=== PATIENT | female | born 1990 | race African-American/Black ===

== ENCOUNTER 2023-02-03 03:39 | Emergency (ER) | payer OTHER ==
[~2023-02-03] VITALS: Ht 167.6 cm; Wt 81.8 kg
[2023-02-03 03:59] VITALS: BP 136/86; PULSE 88; RESP 17; O2SAT 99
[2023-02-03 04:34] LABS: Basophils # (auto) 0 10 ^3/uL (0-0.2); Basophils % (auto) 0.6 % (0.0-2.0); Eosinophils # (auto) 0.2 10 ^3/uL (0-0.8); Eosinophils % (auto) 4.3 % (0.0-7.0); Hematocrit 36.8 % (36.0-46.0); Hemoglobin 12.1 g/dL (12.2-16.2); Lymphocytes % (auto) 34.4 % (10.0-50.0); Mean Corpuscular Hemoglobin 31.3 pg (28.0-32.0); Mean Corpuscular Volume 94.8 fL (80.0-100.0); Monocytes # (auto) 0.4 10 ^3/uL (0-1.3); Monocytes % (auto) 7.8 % (0.0-12.0); Neutrophils % (auto) 52.9 % (37.0-80.0); Nucleated Red Blood Cells % 0.1 %; Red Blood Cells 3.88 10^6/uL (4.0-5.20); Red Cell Distribution Width 12.4 % (11.8-14.3); White Blood Cell 5.7 10^3/uL (4.4-10.8)
[2023-02-03 04:43] LABS: Alanine Aminotransferase 13 U/L (7-40); Albumin 4.2 g/dL (3.2-4.8); Alkaline Phosphatase 42 U/L (46-116); Anion Gap 6 (5-15); Aspartate Aminotransferase 10 U/L (13-40); BUN/Creatinine Ratio 9.1 (10.0-20.0); Bilirubin, Total 0.5 mg/dL (0.2-1.0); Blood Urea Nitrogen 8 mg/dL (9-23); Carbon Dioxide 25 mmol/L (20-30); Chloride 104 mmol/L (98-107); Glucose 168 mg/dL (74-106); Potassium 3.8 mmol/L (3.5-5.1); Sodium 135 mmol/L (136-145); Total Protein 7.1 g/dL (5.7-8.2)
== END 2023-02-03 06:12 | disposition left against medical advice (07) ==
LOC: EDBD 03:39 → ER 03:39
DX: O00.80 Other ectopic pregnancy without intrauterine pregnancy (principal); O99.611 Diseases of the digestive system complicating pregnancy, first trimester; R10.30 Lower abdominal pain, unspecified; K92.89 Other specified diseases of the digestive system; Z88.0 Allergy status to penicillin; Z3A.01 Less than 8 weeks gestation of pregnancy
CPT/HCPCS: 36415; 80053; 83690; 84702; 85025

== ENCOUNTER 2023-03-01 19:39 | Inpatient (IN) | payer OTHER ==
[~2023-03-01] VITALS: Ht 152.4 cm; Wt 73.0 kg
[~2023-03-01 19:39] MED LIST: DOCU-94 PO; HYDR-4902 PO; IBUP-1456 PO
[2023-03-01 21:40] LABS: Hemoglobin 10.3 g/dL (12.2-16.2); Mean Corpuscular Hemoglobin 30.2 pg (28.0-32.0); Mean Corpuscular Hgb Conc. 33.3 g/dL (32.0-36.0); Mean Corpuscular Volume 90.7 fL (80.0-100.0); Red Blood Cells 3.41 10^6/uL (4.0-5.20)
[2023-03-01 21:41] LABS: Basophils % (manual) 0 (0.0-2.0); Blast Cells 0; Eosinophils % (manual) 0 (0-7); Myelocytes % 0; Promyelocytes % 0; Reactive Lymphocytes 0
[2023-03-01 22:04] LABS: Alanine Aminotransferase 12 U/L (7-40); Albumin 4.5 g/dL (3.2-4.8); Alkaline Phosphatase 67 U/L (46-116); Anion Gap 8 (5-15); Aspartate Aminotransferase 21 U/L (13-40); BUN/Creatinine Ratio 9.5 (10.0-20.0); Blood Urea Nitrogen 7 mg/dL (9-23); Calcium 9.5 mg/dL (8.7-10.4); Carbon Dioxide 27 mmol/L (20-30); Chloride 99 mmol/L (98-107); Glucose 103 mg/dL (74-106); Potassium 3.7 mmol/L (3.5-5.1); Sodium 134 mmol/L (136-145)
[2023-03-01 22:05] LABS: Bilirubin, Total 0.6 mg/dL (0.2-1.0); Total Protein 8.1 g/dL (5.7-8.2)
[2023-03-01 22:16] LABS: Anisocytosis Slight; Band Neutrophils % (manual) 4; Large Platelets FEW; Lymphocytes % (manual) 8 (10.0-50.0); Metamyelocytes % 1; Monocytes % (manual) 8 (0-12); Platelet Estimate Adequate
[2023-03-01] MEDS ORDERED: HYDROcodone-ACET 10/325MG TAB PO ONE (22:30)
[2023-03-01] MEDS ORDERED: SODIUM CHLORIDE 0.9% 1,000 ML IV ONE (23:30)
[2023-03-01 23:39] LABS: Erythrocyte Sedimentation Rate 91 mm/hr (0-20)
[2023-03-02 02:00] LABS: Urine Bacteria NONE SEEN /hpf (None Seen); Urine Blood Negative /uL (Negative); Urine Clarity Clear (Clear); Urine Color Yellow (Yellow); Urine Mucus FEW (None Seen); Urine Protein, UAD TRACE (Negative); Urine Specific Gravity 1.012 (1.001-1.035); Urine WBC 2 /hpf (0 - 5)
[2023-03-02] MEDS ORDERED: ONDANSETRON HCL 4 MG/2 ML VIAL IV ONE (02:00)
[2023-03-02] MEDS ORDERED: MORPHINE SULFATE 4 MG/ML SYR/VIAL IV ONE (02:00)
[2023-03-02] MEDS ORDERED: MORPHINE SULFATE INJ 2 MG/ml SYRG IV PRN (06:00)
[2023-03-02] MEDS: LACTATED RINGER'S 1,000 ML IV SCH ×2 (06:10→16:18)
[2023-03-02] MEDS: metroNIDAZOLE 500MG/100ML 100 ML IV SCH ×3 (06:10→22:04)
[2023-03-02] MEDS ORDERED: ACETAMINOPHEN 500 MG TAB PO ONE (06:15)
[2023-03-02 06:37] LABS: Basophils # (auto) 0 10 ^3/uL (0-0.2); Basophils % (auto) 0.2 % (0.0-2.0); Eosinophils # (auto) 0.1 10 ^3/uL (0-0.8); Eosinophils % (auto) 0.4 % (0.0-7.0); Hematocrit 28.8 % (36.0-46.0); Hemoglobin 9.6 g/dL (12.2-16.2); Lymphocytes # (auto) 1.2 10 ^3/uL (0.4-5.4); Lymphocytes % (auto) 7.9 % (10.0-50.0); Mean Corpuscular Hgb Conc. 33.3 g/dL (32.0-36.0); Mean Corpuscular Volume 90.1 fL (80.0-100.0); Monocytes # (auto) 1.6 10 ^3/uL (0-1.3); Monocytes % (auto) 10.2 % (0.0-12.0); Neutrophils # (auto) 12.9 10 ^3/uL (1.6-8.6); Neutrophils % (auto) 81.3 % (37.0-80.0); Red Cell Distribution Width 13.2 % (11.8-14.3); White Blood Cell 15.8 10^3/uL (4.4-10.8)
[2023-03-02 06:53] LABS: Chloride 101 mmol/L (98-107); Potassium 3.4 mmol/L (3.5-5.1); Sodium 135 mmol/L (136-145)
[2023-03-02 06:54] LABS: Anion Gap 8 (5-15); Carbon Dioxide 26 mmol/L (20-30)
[2023-03-02 06:55] LABS: Calcium 8.8 mg/dL (8.7-10.4)
[2023-03-02 06:59] LABS: BUN/Creatinine Ratio 9.1 (10.0-20.0); Blood Urea Nitrogen 6 mg/dL (9-23); Glucose 120 mg/dL (74-106)
[2023-03-02] MEDS: ONDANSETRON HCL 4 MG/2 ML VIAL IV PRN ×2 (09:05→19:32)
[2023-03-02] MEDS: PIPERACILLIN-TAZOB 3.375GM 100 ML IV SCH ×4 (09:06→23:13)
[2023-03-02] MEDS: DOCUSATE SOD 100 MG CAP PO SCH ×2 (10:00→22:03)
[2023-03-02 13:20] LABS: Urine Bacteria NONE SEEN /hpf (None Seen); Urine Blood Negative /uL (Negative); Urine Clarity Clear (Clear); Urine Color Colorless (Yellow); Urine Protein, UAD Negative (Negative); Urine Specific Gravity 1.013 (1.001-1.035); Urine WBC 2 /hpf (0 - 5)
[2023-03-02] MEDS ORDERED: IOHEXOL 300 MG/ML 100ML BOTTLE IJ ONE (14:19)
[2023-03-02] MEDS ORDERED: OMNIPAQUE 12mg/ml 500ml ORAL SOLUTION PO ONE (14:20)
[2023-03-02] MEDS: HYDROcodone-ACET 10/325MG TAB PO PRN ×2 (15:44→22:03)
[2023-03-02 17:00] VITALS: BP 127/85; PULSE 101; RESP 17; TEMP 99.6; O2SAT 97
[2023-03-02] MEDS ORDERED: IOHEXOL 350 MG/ML 100ML IJ ONE (20:25)
[2023-03-02 22:00] VITALS: BP 126/78; PULSE 91; RESP 16; TEMP 98.7; O2SAT 100
[2023-03-03] VITALS (9 sets, daily range): BP systolic 105–124; BP diastolic 68–80; PULSE 75–100; RESP 13–18; TEMP 97.9–101.9; O2SAT 96–99
[2023-03-03] MEDS: LACTATED RINGER'S 1,000 ML IV SCH ×3 (00:31→18:07)
[2023-03-03] MEDS: PIPERACILLIN-TAZOB 3.375GM 100 ML IV SCH ×4 (04:56→23:29)
[2023-03-03 05:49] LABS: Basophils # (auto) 0 10 ^3/uL (0-0.2); Basophils % (auto) 0.2 % (0.0-2.0); Eosinophils # (auto) 0.1 10 ^3/uL (0-0.8); Eosinophils % (auto) 0.3 % (0.0-7.0); Hematocrit 28.3 % (36.0-46.0); Hemoglobin 9.7 g/dL (12.2-16.2); Lymphocytes # (auto) 0.9 10 ^3/uL (0.4-5.4); Lymphocytes % (auto) 4.1 % (10.0-50.0); Mean Corpuscular Hemoglobin 30.4 pg (28.0-32.0); Mean Corpuscular Hgb Conc. 34.3 g/dL (32.0-36.0); Mean Corpuscular Volume 88.8 fL (80.0-100.0); Monocytes # (auto) 1.4 10 ^3/uL (0-1.3); Monocytes % (auto) 6.6 % (0.0-12.0); Neutrophils # (auto) 18.4 10 ^3/uL (1.6-8.6); Neutrophils % (auto) 88.8 % (37.0-80.0); Red Blood Cells 3.19 10^6/uL (4.0-5.20); Red Cell Distribution Width 13.3 % (11.8-14.3); White Blood Cell 20.7 10^3/uL (4.4-10.8)
[2023-03-03] MEDS: ONDANSETRON HCL 4 MG/2 ML VIAL IV PRN (05:56)
[2023-03-03] MEDS: HYDROcodone-ACET 10/325MG TAB PO PRN (05:56)
[2023-03-03] MEDS: metroNIDAZOLE 500MG/100ML 100 ML IV SCH ×3 (05:56→21:29)
[2023-03-03] MEDS ORDERED: VANCOMYCIN PER PHARMACY 0 MG IV SCH (07:15)
[2023-03-03] MEDS ORDERED: VANCOMYCIN 1GM/250ML 250 ML IV ONE (07:30)
[2023-03-03 08:10] LABS: INR 1.26 (0.9-1.15)
[2023-03-03] MEDS ORDERED: SUCCINYLCHOLINE CHLORIDE 20 MG/ML 10ML VIAL IV ONE (08:53)
[2023-03-03] MEDS ORDERED: fentaNYL CITRATE 100 MCG/2 ML VL ONE (08:57)
[2023-03-03] MEDS ORDERED: ROCURONIUM 10MG/ML 10ML VIAL IV ONE (09:14)
[2023-03-03] MEDS ORDERED: ONDANSETRON HCL 4 MG/2 ML VIAL ONE (09:15)
[2023-03-03] MEDS ORDERED: DexAMETHasone SOD PHOS 10MG/1ML VIAL INJ ONE (09:15)
[2023-03-03] MEDS ORDERED: MEPERIDINE HCL (50 MG/ML) 1 ML VIAL ONE (09:18)
[2023-03-03] MEDS ORDERED: SUGAMMADEX 200mg/2ml Vial (100MG/ML) IV ONE (09:28)
[2023-03-03] MEDS: DOCUSATE SOD 100 MG CAP PO SCH ×2 (13:38→21:28)
[2023-03-03] MEDS: VANCOMYCIN 1GM/250ML 250 ML IV SCH (18:00)
[2023-03-03] MEDS: HYDROmorphone HCL 2 MG/ML VL/or syr IV PRN (21:45)
[2023-03-04] VITALS (7 sets, daily range): BP systolic 102–120; BP diastolic 65–83; PULSE 74–92; RESP 16–19; TEMP 97.7–98.6; O2SAT 96–98
[2023-03-04] MEDS: LACTATED RINGER'S 1,000 ML IV SCH ×3 (01:18→18:38)
[2023-03-04] MEDS: ONDANSETRON HCL 4 MG/2 ML VIAL IV PRN ×2 (01:57→11:53)
[2023-03-04] MEDS: VANCOMYCIN 1GM/250ML 250 ML IV SCH (03:45)
[2023-03-04] MEDS: MORPHINE SULFATE INJ 2 MG/ml SYRG IV PRN (04:59)
[2023-03-04] MEDS: metroNIDAZOLE 500MG/100ML 100 ML IV SCH (05:04)
[2023-03-04] MEDS: PIPERACILLIN-TAZOB 3.375GM 100 ML IV SCH ×4 (06:11→23:06)
[2023-03-04 06:53] LABS: Basophils # (auto) 0 10 ^3/uL (0-0.2); Basophils % (auto) 0.1 % (0.0-2.0); Eosinophils # (auto) 0 10 ^3/uL (0-0.8); Eosinophils % (auto) 0.2 % (0.0-7.0); Hematocrit 27.2 % (36.0-46.0); Hemoglobin 9.1 g/dL (12.2-16.2); Lymphocytes % (auto) 9.2 % (10.0-50.0); Mean Corpuscular Hgb Conc. 33.3 g/dL (32.0-36.0); Monocytes # (auto) 1.5 10 ^3/uL (0-1.3); Monocytes % (auto) 6.7 % (0.0-12.0); Neutrophils # (auto) 18.2 10 ^3/uL (1.6-8.6); Neutrophils % (auto) 83.8 % (37.0-80.0); Red Blood Cells 3.02 10^6/uL (4.0-5.20); Red Cell Distribution Width 13.6 % (11.8-14.3); White Blood Cell 21.7 10^3/uL (4.4-10.8)
[2023-03-04] MEDS: DOCUSATE SOD 100 MG CAP PO SCH ×2 (10:00→21:28)
[2023-03-04] MEDS: HYDROmorphone HCL 2 MG/ML VL/or syr IV PRN (11:53)
[2023-03-05] VITALS (7 sets, daily range): BP systolic 102–113; BP diastolic 61–72; PULSE 74–78; RESP 18; TEMP 97.5–98.5; O2SAT 98–99
[2023-03-05] MEDS: LACTATED RINGER'S 1,000 ML IV SCH ×3 (01:57→19:00)
[2023-03-05] MEDS: PIPERACILLIN-TAZOB 3.375GM 100 ML IV SCH ×3 (05:41→18:00)
[2023-03-05 08:33] LABS: Hematocrit 28.5 % (36.0-46.0); Hemoglobin 9.5 g/dL (12.2-16.2); Mean Corpuscular Hemoglobin 30.1 pg (28.0-32.0); Mean Corpuscular Hgb Conc. 33.3 g/dL (32.0-36.0); Mean Corpuscular Volume 90.5 fL (80.0-100.0); Red Blood Cells 3.15 10^6/uL (4.0-5.20); Red Cell Distribution Width 13.6 % (11.8-14.3); White Blood Cell 13.8 10^3/uL (4.4-10.8)
[2023-03-05 08:53] LABS: Basophils % (manual) 0 (0.0-2.0); Blast Cells 0; Reactive Lymphocytes 0
[2023-03-05 12:04] LABS: Band Neutrophils % (manual) 4; Eosinophils % (manual) 2 (0-7); Lymphocytes % (manual) 7 (10.0-50.0); Metamyelocytes % 1; Monocytes % (manual) 7 (0-12); Myelocytes % 1; Platelet Estimate Adequate; Promyelocytes % 1
[2023-03-05] MEDS: HYDROmorphone HCL 2 MG/ML VL/or syr IV PRN (13:14)
[2023-03-05] MEDS: DOCUSATE SOD 100 MG CAP PO SCH ×2 (13:21→22:00)
[2023-03-06] VITALS (7 sets, daily range): BP systolic 97–122; BP diastolic 59–82; PULSE 64–76; RESP 14–20; TEMP 97.5–98.2; O2SAT 96–98
[2023-03-06] MEDS: PIPERACILLIN-TAZOB 3.375GM 100 ML IV SCH ×5 (00:55→23:42)
[2023-03-06] MEDS: MORPHINE SULFATE INJ 2 MG/ml SYRG IV PRN ×2 (00:56→11:54)
[2023-03-06] MEDS: LACTATED RINGER'S 1,000 ML IV SCH ×3 (03:00→19:00)
[2023-03-06] MEDS ORDERED: HYDR-4902 PO (07:29)
[2023-03-06] MEDS: DOCUSATE SOD 100 MG CAP PO SCH ×2 (09:42→21:45)
[2023-03-06] MEDS: HYDROmorphone HCL 2 MG/ML VL/or syr IV PRN ×2 (14:49→20:16)
[2023-03-06] MEDS ORDERED: POTASSIUM CHL 20 Meq TABLET PO ONE (18:30)
[2023-03-06] MEDS: ONDANSETRON HCL 4 MG/2 ML VIAL IV PRN (20:30)
[2023-03-07] MEDS: PIPERACILLIN-TAZOB 3.375GM 100 ML IV SCH ×2 (05:46→12:20)
[2023-03-07 07:17] LABS: Hematocrit 29.4 % (36.0-46.0); Hemoglobin 9.8 g/dL (12.2-16.2); Mean Corpuscular Hemoglobin 30.3 pg (28.0-32.0); Mean Corpuscular Hgb Conc. 33.2 g/dL (32.0-36.0); Mean Corpuscular Volume 91.1 fL (80.0-100.0); Red Blood Cells 3.22 10^6/uL (4.0-5.20); White Blood Cell 10.8 10^3/uL (4.4-10.8)
[2023-03-07 07:18] LABS: Basophils % (manual) 0 (0.0-2.0); Blast Cells 0; Metamyelocytes % 0; Myelocytes % 0; Promyelocytes % 0; Reactive Lymphocytes 0
[2023-03-07 08:00] VITALS: O2SAT 100
[2023-03-07 08:03] LABS: Band Neutrophils % (manual) 2; Eosinophils % (manual) 2 (0-7); Lymphocytes % (manual) 24 (10.0-50.0); Monocytes % (manual) 9 (0-12); Platelet Estimate Adequate
[2023-03-07 08:36] VITALS: BP 124/78; PULSE 68; RESP 15; TEMP 98.2; O2SAT 100
[2023-03-07] MEDS: DOCUSATE SOD 100 MG CAP PO SCH ×2 (10:00→11:10)
[2023-03-07] MEDS: MORPHINE SULFATE INJ 2 MG/ml SYRG IV PRN (11:11)
[2023-03-07 12:56] VITALS: BP 119/74; PULSE 63; RESP 19; TEMP 98.5; O2SAT 98
[2023-03-07] MEDS: HYDROmorphone HCL 2 MG/ML VL/or syr IV PRN (13:31)
[2023-03-07 16:01] VITALS: BP 119/74; PULSE 63; RESP 19; TEMP 98.5; O2SAT 98
[2023-03-07 17:00] VITALS: BP 119/74; PULSE 63; RESP 16; TEMP 97.2; O2SAT 100
== END 2023-03-07 17:00 | disposition home or self-care (01) | DRG 711 ==
LOC: ER 19:39 → OVERFLOW 03-02 06:27 → EAST 03-02 16:04
PROVIDERS: ADMIT Obstetrics & Gynecology; ATTEND Obstetrics & Gynecology
PROC: 0W9J0ZZ Drainage of Pelvic Cavity, Open Approach (ICD-10-PCS; principal; 2023-03-02)
DX: T81.41XA Infection following a procedure, superficial incisional surgical site, initial encounter (principal); A41.9 Sepsis, unspecified organism; Z83.2 Family history of diseases of the blood and blood-forming organs and certain disorders involving the immune mechanism; Y83.8 Other surgical procedures as the cause of abnormal reaction of the patient, or of later complication, without mention of misadventure at the time of the procedure; Z83.3 Family history of diabetes mellitus; Z87.59 Personal history of other complications of pregnancy, childbirth and the puerperium; Z88.0 Allergy status to penicillin; Z90.721 Acquired absence of ovaries, unilateral; Y92.89 Other specified places as the place of occurrence of the external cause
CPT/HCPCS: 36415; 71045; 74176; 74177; 80048; 80053; 81001; 81025; 82565; 83605; 84520; 84702; 85007; 85025; 85027; 85610; 85652; 85730; 86141; 86850; 86870; 86900; 86901; 86922; 87040; 87070; 87075; 87077; 87086; 87186; 87205; 96361; 96374; 96375; 96376; G0378; J0330; J1100; J2405; J2543; J3490

== ENCOUNTER 2023-06-15 08:06 | Emergency (ER) | payer MEDICAID, OTHER ==
[~2023-06-15] VITALS: Ht 160 cm; Wt 66.7 kg
[2023-06-15 08:34] VITALS: BP 130/85; PULSE 85; RESP 18; TEMP 98.2; O2SAT 98
[2023-06-15 08:38] LABS: Urine Bacteria FEW /hpf (None Seen); Urine Blood Negative /uL (Negative); Urine Clarity Clear (Clear); Urine Color Yellow (Yellow); Urine Protein, UAD Negative (Negative); Urine Specific Gravity 1.012 (1.001-1.035); Urine Urobilinogen Normal (Negative); Urine WBC <1 /hpf (0 - 5); Urine pH 5.5 (5.0-8.0)
[2023-06-15] MEDS ORDERED: NITR-52 PO (11:37)
== END 2023-06-15 11:42 | disposition home or self-care (01) ==
LOC: ER 08:06
DX: O26.891 Other specified pregnancy related conditions, first trimester (principal); R10.2 Pelvic and perineal pain; R10.31 Right lower quadrant pain; Z3A.12 12 weeks gestation of pregnancy; Z98.890 Other specified postprocedural states; Z79.899 Other long term (current) drug therapy
CPT/HCPCS: 36415; 76801; 81001; 81025; 84702

== ENCOUNTER 2023-07-20 14:02 | Emergency (ER) | payer MEDICAID ==
[~2023-07-20] VITALS: Ht 152.4 cm; Wt 68.0 kg
[~2023-07-20 14:02] MED LIST changes: +NITR-52 PO
[2023-07-20 14:09] VITALS: BP 123/66; PULSE 104; RESP 18; O2SAT 100
[2023-07-20 14:58] LABS: Basophils # (auto) 0 10 ^3/uL (0-0.2); Basophils % (auto) 0.4 % (0.0-2.0); Eosinophils # (auto) 0.1 10 ^3/uL (0-0.8); Eosinophils % (auto) 1.5 % (0.0-7.0); Hematocrit 33.4 % (36.0-46.0); Hemoglobin 11.3 g/dL (12.2-16.2); Lymphocytes # (auto) 1.5 10 ^3/uL (0.4-5.4); Mean Corpuscular Hemoglobin 30.6 pg (28.0-32.0); Mean Corpuscular Hgb Conc. 33.8 g/dL (32.0-36.0); Mean Corpuscular Volume 90.4 fL (80.0-100.0); Monocytes # (auto) 0.6 10 ^3/uL (0-1.3); Monocytes % (auto) 5.8 % (0.0-12.0); Neutrophils # (auto) 7.5 10 ^3/uL (1.6-8.6); Neutrophils % (auto) 77.3 % (37.0-80.0); Nucleated Red Blood Cells % 0.1 %; Red Blood Cells 3.69 10^6/uL (4.0-5.20); Red Cell Distribution Width 13.7 % (11.8-14.3); White Blood Cell 9.7 10^3/uL (4.4-10.8)
[2023-07-20 15:06] LABS: Chloride 109 mmol/L (98-107); Potassium 3.7 mmol/L (3.5-5.1); Sodium 137 mmol/L (136-145)
[2023-07-20 15:07] LABS: Anion Gap 6 (5-15); Calcium 9.3 mg/dL (8.5-10.1); Carbon Dioxide 22 mmol/L (20-30)
[2023-07-20 15:12] LABS: Glucose 93 mg/dL (74-106)
[2023-07-20 15:20] LABS: BUN/Creatinine Ratio 8.2 (10.0-20.0); Blood Urea Nitrogen < 5 mg/dL (9-23)
== END 2023-07-20 16:36 | disposition home or self-care (01) ==
LOC: ER 14:02
DX: O9A.212 Injury, poisoning and certain other consequences of external causes complicating pregnancy, second trimester (principal); S40.011A Contusion of right shoulder, initial encounter; R10.2 Pelvic and perineal pain; Z79.1 Long term (current) use of non-steroidal anti-inflammatories (NSAID); Z79.899 Other long term (current) drug therapy; Z3A.17 17 weeks gestation of pregnancy; W18.39XA Other fall on same level, initial encounter; Y93.89 Activity, other specified; Y92.89 Other specified places as the place of occurrence of the external cause; Y99.8 Other external cause status
CPT/HCPCS: 36415; 76805; 80048; 84702; 85025; 86900; 86901